=== PATIENT | male | born 1965 | race Caucasian/White ===

== ENCOUNTER 2023-09-22 09:18 | Observation (INO) | payer BC ==
[2023-09-22 09:40] LABS: BASOPHILS ABSOLUTE AUTO 0.01 10^3/uL (0.00-0.50); BASOPHILS PERCENT AUTO 0.2 % (0-1); EOSINOPHILS ABSOLUTE AUTO 0.01 10^3/uL (0.00-1.50); EOSINOPHILS PERCENT AUTO 0.2 % (0-6); HEMATOCRIT 37.9 % (42.0-52.0); HEMOGLOBIN 11.8 g/dL (14.0-18.0); IMMATURE GRAN ABSOLUTE AUTO 0.02 10^3/uL (0.00-0.49); IMMATURE GRAN PERCENT AUTO 0.4 % (0.0-4.9); LYMPHOCYTES ABSOLUTE AUTO 0.78 10^3/uL (0.60-5.00); LYMPHOCYTES PERCENT AUTO 15.8 % (24-44); MEAN CORPUSCULAR HEMOGLOBIN 27.5 pg (27.0-32.0); MEAN CORPUSCULAR HGB CONC 31.1 g/dL (32.0-36.0); MEAN CORPUSCULAR VOLUME 88.3 fL (83.0-97.0); MONOCYTES ABSOLUTE AUTO 0.46 10^3/uL (0.00-1.50); MONOCYTES PERCENT AUTO 9.3 % (0-10); NEUTROPHILS ABSOLUTE AUTO 3.65 x10^3/uL (1.80-8.00); NEUTROPHILS PERCENT AUTO 74.1 % (41-71); PLATELET COUNT,PLT 161 10^3/uL (150-400); RED BLOOD CELL COUNT 4.29 x10^6/uL (4.50-6.00); WHITE BLOOD CELL COUNT,WBC 4.9 10^3/uL (4.0-11.0)
[2023-09-22 09:47] LABS: APPEARANCE,URINE CLEAR (CLEAR); BILIRUBIN,URINE NEGATIVE (NEGATIVE); COLOR,URINE YELLOW (YELLOW); GLUCOSE,URINE NEGATIVE (NEGATIVE); KETONES,URINE NEGATIVE (NEGATIVE); LEUKOCYTE ESTERASE,URINE NEGATIVE (NEGATIVE); NITRITE,URINE NEGATIVE (NEGATIVE); OCCULT BLOOD,URINE TRACE-INTACT (NEGATIVE); PH,URINE 7.5 (4.5-8.0); PROTEIN,URINE 100 mg/dL (NEGATIVE); UROBILINOGEN,URINE 0.2 EU/dL (0.2-1.0)
[2023-09-22 09:55] LABS: ALBUMIN 3.5 g/dL (3.4-5.0); BILIRUBIN TOTAL 0.6 mg/dL (0.0-1.0); CALCIUM 8.9 mg/dL (8.4-10.1); EST CRCL DRUG DOSING (CG) 26.23 mL/min; MAGNESIUM 1.4 mg/dL (1.8-2.4); POTASSIUM,K 4.5 mEq/L (3.5-5.0)
[2023-09-22 09:57] LABS: CREATININE 2.8 mg/dL (0.7-1.3)
[2023-09-22 10:00] LABS: BACTERIA,URINE NOT SEEN /HPF (NOT SEEN); RBC,URINE 0-5 /HPF (0-5); SQUAMOUS EPITHELIAL CELLS,UR NOT SEEN /HPF (NOT SEEN); WBC,URINE NOT SEEN /HPF (0-5)
[2023-09-22] MEDS ORDERED: Polyethylene Glycol 3350 Powder 17 GM Packet PO PRN (10:59)
[2023-09-22] MEDS ORDERED: Acetaminophen 325 MG Tab PO PRN (10:59)
[2023-09-22] MEDS ORDERED: Docusate Sodium 100 MG Cap PO PRN (10:59)
[2023-09-22] MEDS: Sodium Chloride 0.9% 1,000 ML IV SCH (11:15)
[2023-09-22] MEDS: Magnesium Sulfate/Water 2 GM in Premix Bag 1 BAG IV ONE (11:15)
[2023-09-22] MEDS: Ondansetron 4 MG/2 ML SDV IV PRN (12:07)
[2023-09-22] MEDS: Promethazine 12.5 MG in Sodium Chloride 0.9% 100 ML IV ONE (16:34)
[2023-09-22] MEDS ORDERED: diphenhydrAMINE 25 MG Cap PO PRN (17:39)
[2023-09-22] MEDS ORDERED: Loperamide 2 MG Cap PO SCH (17:45)
[2023-09-22] MEDS ORDERED: Loperamide 2 MG Cap PO PRN (17:53)
[2023-09-22] MEDS: Pantoprazole 40 MG Vial ONE (19:42)
[2023-09-22] MEDS: Pantoprazole 40 MG Tab.CR PO SCH (19:46)
[2023-09-22] MEDS: Metoprolol Tartrate 25 MG Tab PO SCH (19:46)
[2023-09-22] MEDS: Calcium Carbonate 500 MG Tab.Chew PO SCH (19:46)
[2023-09-22] MEDS: Sodium Bicarbonate 650 MG Tab PO SCH (19:46)
[2023-09-22] MEDS ORDERED: Non-Formulary Medication 1 Each (Tacrolimus [Prograf] 0.5 MG Cap) PO SCH (20:00)
[2023-09-22] MEDS ORDERED: Non-Formulary Medication 1 Each (Mycophenolate Mofetil [Cellcept] 500 MG Tablet) PO SCH (20:00)
[2023-09-22] MEDS: Pantoprazole 40 MG Tab.CR ONE (20:02)
[2023-09-23] MEDS: Ferrous Sulfate 324 MG Tab.EC PO SCH (07:28)
[2023-09-23] MEDS: Ascorbic Acid 500 MG Tab PO SCH (07:28)
[2023-09-23] MEDS: predniSONE 5 MG Tab PO SCH (07:28)
[2023-09-23] MEDS: Ondansetron 4 MG Tab.DIS PO PRN (07:40)
[2023-09-23 07:47] LABS: BASOPHILS ABSOLUTE AUTO 0.02 10^3/uL (0.00-0.50); BASOPHILS PERCENT AUTO 0.4 % (0-1); EOSINOPHILS ABSOLUTE AUTO 0.04 10^3/uL (0.00-1.50); EOSINOPHILS PERCENT AUTO 0.8 % (0-6); HEMATOCRIT 36.1 % (42.0-52.0); HEMOGLOBIN 11.1 g/dL (14.0-18.0); IMMATURE GRAN ABSOLUTE AUTO 0.01 10^3/uL (0.00-0.49); IMMATURE GRAN PERCENT AUTO 0.2 % (0.0-4.9); LYMPHOCYTES ABSOLUTE AUTO 1.08 10^3/uL (0.60-5.00); LYMPHOCYTES PERCENT AUTO 22.6 % (24-44); MEAN CORPUSCULAR HEMOGLOBIN 27.5 pg (27.0-32.0); MEAN CORPUSCULAR HGB CONC 30.7 g/dL (32.0-36.0); MEAN CORPUSCULAR VOLUME 89.6 fL (83.0-97.0); MONOCYTES ABSOLUTE AUTO 0.53 10^3/uL (0.00-1.50); MONOCYTES PERCENT AUTO 11.1 % (0-10); NEUTROPHILS PERCENT AUTO 64.9 % (41-71); PLATELET COUNT,PLT 153 10^3/uL (150-400); RED BLOOD CELL COUNT 4.03 x10^6/uL (4.50-6.00); WHITE BLOOD CELL COUNT,WBC 4.8 10^3/uL (4.0-11.0)
[2023-09-23 08:03] LABS: CALCIUM 8.6 mg/dL (8.4-10.1); CREATININE 2.5 mg/dL (0.7-1.3); EST CRCL DRUG DOSING (CG) 29.38 mL/min; MAGNESIUM 1.7 mg/dL (1.8-2.4); POTASSIUM,K 4.2 mEq/L (3.5-5.0)
[2023-09-23] MEDS: Meclizine 12.5 MG Tab PO PRN (10:21)
[2023-09-24] MEDS: Sodium Zirconium Cyclosilicate 10 GM Packet PO SCH (06:28)
[2023-09-24 07:25] LABS: BASOPHILS ABSOLUTE AUTO 0.02 10^3/uL (0.00-0.50); BASOPHILS PERCENT AUTO 0.5 % (0-1); EOSINOPHILS ABSOLUTE AUTO 0.06 10^3/uL (0.00-1.50); EOSINOPHILS PERCENT AUTO 1.4 % (0-6); HEMATOCRIT 35.2 % (42.0-52.0); HEMOGLOBIN 10.8 g/dL (14.0-18.0); IMMATURE GRAN ABSOLUTE AUTO 0.01 10^3/uL (0.00-0.49); IMMATURE GRAN PERCENT AUTO 0.2 % (0.0-4.9); LYMPHOCYTES ABSOLUTE AUTO 1.16 10^3/uL (0.60-5.00); MEAN CORPUSCULAR HEMOGLOBIN 27.8 pg (27.0-32.0); MEAN CORPUSCULAR HGB CONC 30.7 g/dL (32.0-36.0); MEAN CORPUSCULAR VOLUME 90.5 fL (83.0-97.0); MONOCYTES ABSOLUTE AUTO 0.52 10^3/uL (0.00-1.50); MONOCYTES PERCENT AUTO 12.1 % (0-10); NEUTROPHILS ABSOLUTE AUTO 2.53 x10^3/uL (1.80-8.00); NEUTROPHILS PERCENT AUTO 58.8 % (41-71); PLATELET COUNT,PLT 152 10^3/uL (150-400); RED BLOOD CELL COUNT 3.89 x10^6/uL (4.50-6.00); WHITE BLOOD CELL COUNT,WBC 4.3 10^3/uL (4.0-11.0)
[2023-09-24 07:47] LABS: CALCIUM 8.1 mg/dL (8.4-10.1); CREATININE 2.3 mg/dL (0.7-1.3); EST CRCL DRUG DOSING (CG) 31.93 mL/min; MAGNESIUM 1.4 mg/dL (1.8-2.4); POTASSIUM,K 4.4 mEq/L (3.5-5.0)
[2023-09-24] MEDS: Calcitriol 0.25 MCG Cap PO SCH (07:52)
[2023-09-24] MEDS: Magnesium Sulfate/Water 2 GM in Premix Bag 1 BAG IV ONE (08:49)
[2023-09-24 11:27] VITALS: BP 197/83; PULSE 62
[2023-09-24] MEDS ORDERED: Magnesium Chloride 64 MG Tab.ER PO SCH (17:30)
== END 2023-09-24 11:36 | disposition home or self-care (01) ==
LOC: CC.ED 09:18 → CC.MS 10:28 → UNDOADMOB 10:29
PROVIDERS: ADMIT Nurse Practitioner; ATTEND Nurse Practitioner
DX: N17.9 Acute kidney failure, unspecified (principal); E11.22 Type 2 diabetes mellitus with diabetic chronic kidney disease; I12.9 Hypertensive chronic kidney disease with stage 1 through stage 4 chronic kidney disease, or unspecified chronic kidney disease; N18.9 Chronic kidney disease, unspecified; E83.42 Hypomagnesemia; Z79.899 Other long term (current) drug therapy
CPT/HCPCS: 36415; 80048; 80053; 81001; 83735; 84484; 85025; 93010; 96361; 96365; 96366; 96375; 99223; 99233; 99239; 99284; A9270-GY; G0378; J2405; J2550; J3475; J3490; J7030; J7512